=== PATIENT | female | born 1990 | race Caucasian/White ===

== ENCOUNTER → 2016-07-04 | Outpatient (CLI) | payer OTHER ==
--- NOTE | 2016-07-04 16:27 | DX ---
Sinuses, 4 views History: Chronic frontal headaches, R51. Findings: Paranasal sinuses demonstrate no evidence of complete opacification or air-fluid levels. M inimal nasal septal bowing toward the right. Impression: 1. No radiographic evidence of sinusitis. 2. Consider CT sinuses or noncontrast CT brain if there is continued clinical concern.
== END ==
LOC: FIMAGING 12:38
PROVIDERS: ATTEND Family Medicine
DX: R51 Headache (principal)